=== PATIENT | male | born 1980 | race African-American/Black ===

== ENCOUNTER 2018-10-01 15:04 | Emergency (ER) | payer OTHER ==
[~2018-10-01] VITALS: Ht 167.6 cm; Wt 83.9 kg
[2018-10-01 19:25] VITALS: BP 117/67; TEMP 98
== END 2018-10-01 19:25 | disposition home or self-care (01) ==
LOC: ED 15:04
PROC: 0HQ0XZZ Repair Scalp Skin, External Approach (ICD-10-PCS; principal; 2018-10-01)
DX: S01.81XA Laceration without foreign body of other part of head, initial encounter (principal); W20.1XXA Struck by object due to collapse of building, initial encounter; Y93.89 Activity, other specified; Y92.89 Other specified places as the place of occurrence of the external cause
CPT/HCPCS: 90471; 90715; 99283; J7040

== ENCOUNTER 2018-10-08 11:06 | Emergency (ER) | payer OTHER ==
[~2018-10-08] VITALS: Ht 167.6 cm; Wt 83.9 kg
[2018-10-08 11:13] VITALS: BP 138/83; TEMP 98.2
== END 2018-10-08 11:37 | disposition home or self-care (01) ==
LOC: ED 11:06
DX: Z51.89 Encounter for other specified aftercare (principal)
CPT/HCPCS: 99281

== ENCOUNTER 2018-10-11 15:58 | Emergency (ER) | payer OTHER ==
[~2018-10-11] VITALS: Ht 167.6 cm; Wt 83.9 kg
[2018-10-11 16:08] VITALS: BP 134/83; TEMP 97.7
== END 2018-10-11 16:21 | disposition home or self-care (01) ==
LOC: ED 15:58
DX: Z48.02 Encounter for removal of sutures (principal)